=== PATIENT | female | born 2000 | race African-American/Black ===

== ENCOUNTER 2019-05-18 03:22 | Emergency (ER) | payer SELFPAY ==
[~2019-05-18] VITALS: Ht 170.2 cm; Wt 85.5 kg
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
[2019-05-18 05:52] VITALS: BP 102/74
--- NOTE | 2019-05-18 05:52 | NUR ---
CONTINUES TO SLEEP IN NAD
== END 2019-05-18 05:57 | disposition home or self-care (01) ==
LOC: ED 05:51
DX: S06.0X9A Concussion with loss of consciousness of unspecified duration, initial encounter (principal); T14.8XXA Other injury of unspecified body region, initial encounter; Y04.0XXA Assault by unarmed brawl or fight, initial encounter; Y93.89 Activity, other specified; Y92.89 Other specified places as the place of occurrence of the external cause; Y99.8 Other external cause status
CPT/HCPCS: 70450; 70486; 72125; 99284

== ENCOUNTER 2019-06-17 00:37 | Emergency (ER) | payer OTHER ==
[~2019-06-17] VITALS: Ht 172.7 cm; Wt 84.2 kg
[2019-06-17 02:05] VITALS: BP 127/80
== END 2019-06-17 06:38 | disposition home or self-care (01) ==
LOC: ED 02:02
DX: S92.354A Nondisplaced fracture of fifth metatarsal bone, right foot, initial encounter for closed fracture (principal); W10.9XXA Fall (on) (from) unspecified stairs and steps, initial encounter; Y93.89 Activity, other specified; Y92.009 Unspecified place in unspecified non-institutional (private) residence as the place of occurrence of the external cause; Y99.8 Other external cause status
CPT/HCPCS: 29515; 99283

== ENCOUNTER 2020-09-29 19:28 | Emergency (ER) | payer OTHER ==
[~2020-09-29] VITALS: Ht 172.7 cm; Wt 80.0 kg
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
[2020-09-29 19:31] VITALS: BP 138/103
[2020-09-29] MEDS ORDERED: FENTANYL PF 100 MCG/2ML ONE (19:33)
--- NOTE | 2020-09-29 19:37 | NUR ---
TASK RN: [facility] NOTIFIED ABOUT PT, WITH ESTIMATES FOR DISPATCH OF OFFICERS TO BE DETERMINED. PER DISPATCH, [facility] TO BE NOTIFIED IF PT HAS [facility] TRANSPORT ARRIVE BEFORE OFFICERS DO, FOR TRANSPORT OF PT BY AMBULANCE TO [facility].
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
[2020-09-29] MEDS ORDERED: SODIUM CHLORIDE 0.9%, 500ML IVBOLUS ONE (20:00)
[2020-09-29] MEDS ORDERED: FENTANYL PF 100 MCG/2ML IVPush ONE (20:00)
--- NOTE | 2020-09-29 20:09 | NUR ---
ATTEMPTED TO CALL REPORT TO [facility] X3, RONALDO WAS BUSY.
== END 2020-09-29 20:13 | disposition short-term general hospital (02) ==
LOC: ED 19:54
DX: S31.119A Laceration without foreign body of abdominal wall, unspecified quadrant without penetration into peritoneal cavity, initial encounter (principal); S41.112A Laceration without foreign body of left upper arm, initial encounter; R06.02 Shortness of breath; R07.89 Other chest pain; R00.0 Tachycardia, unspecified; W45.8XXA Other foreign body or object entering through skin, initial encounter; Y93.89 Activity, other specified; Y92.488 Other paved roadways as the place of occurrence of the external cause; Y99.8 Other external cause status
CPT/HCPCS: 71045; 96374; 99283; J3010; J7040; 96361